=== PATIENT | male | born 2000 | race Caucasian/White ===

== ENCOUNTER 2020-10-01 10:19 | Emergency (ER) | payer BC ==
--- NOTE | 2020-10-01 11:14 | ER Document Report ---
ED Medical Screen (RME) - General Chief Complaint: Scrotal Pain, Acute Onset Stated Complaint: TESTICULAR PAIN Time Seen by Provider: 10/01/20 11:12 Primary Care Provider: FLORENTIN CONTRERAS MD [Primary Care Provider] - Follow up as needed Mode of Arrival: Ambulatory Information source: Patient Notes: 20-year-old male presented to ED for right testicle and groin pain. He states he had low back pain yesterday that wrapped around but today he does not have the back pain he just has right testicle and groin pain. There is no swelling redness or change in color to the right scrotum. Will get urine and scrotal ultrasound. Patient will be seen by another provider. I have greeted and performed a rapid initial assessment of this patient. A comprehensive ED assessment and evaluation of the patient, analysis of test results and completion of medical decision making process will be conducted by an additional ED providers. TRAVEL OUTSIDE OF THE [place] IN LAST 30 DAYS: No - Related Data Allergies/Adverse Reactions: No Known Allergies Allergy (Verified 10/01/20 11:11) Physical Exam - Vital signs Vitals: Temp Pulse Resp BP Pulse Ox 98.1 F 99 18 138/77 H 100 10/01/20 10:34 10/01/20 10:34 10/01/20 10:34 10/01/20 10:34 10/01/20 10:34 Course - Vital Signs Vital signs: Temp Pulse Resp BP Pulse Ox 98.1 F 99 18 138/77 H 100 10/01/20 10:34 10/01/20 10:34 10/01/20 10:34 10/01/20 10:34 10/01/20 10:34 Doctor's Discharge - Discharge Referrals: FLORENTIN CONTRERAS MD [Primary Care Provider] - Follow up as needed
[2020-10-01 12:17] LABS: APPEARANCE,URINE CLEAR; BILIRUBIN,URINE NEGATIVE (NEGATIVE); COLOR,URINE YELLOW; GLUCOSE, URINE NEGATIVE (NEGATIVE); KETONES,URINE 20 mg/dL (NEGATIVE); LEUKOCYTE ESTERASE,URINE NEGATIVE (NEGATIVE); NITRITE,URINE NEGATIVE (NEGATIVE); PROTEIN,URINE NEGATIVE (NEGATIVE); URINE SPECIFIC GRAVITY 1.011; UROBILINOGEN,URINE NEGATIVE mg/dL (<2.0)
--- NOTE | 2020-10-01 13:32 | RADIOLOGY REPORT (SQ) ---
EXAM DESCRIPTION: CT ABD/PELVIS NO ORAL OR IV IMAGES COMPLETED DATE/TIME: 10/01/2020 1:16 pm REASON FOR STUDY: R flank pain COMPARISON: None. TECHNIQUE: CT scan of the abdomen and pelvis performed without intravenous or oral contrast. Images reviewed with lung, soft tissue, and bone windows. Reconstructed coronal and sagittal MPR images revi ewed. All images stored on PACS. All CT scanners at this facility use dose modulation, iterative reconstruction, and/or weight based d osing when appropriate to reduce radiation dose to as low as reasonably achievable (ALARA). [facility]: Dose Right [facility]: CareDose [facility]: Dose Right [facility]: Teradose 4D [facility]: Smart [employer] RADIATION DOSE: CT Rad equipment meets quality standard of care and radiation dose reduction techniq ues were employed. CTDIvol: 5.4 mGy. DLP: 280 mGy-cm. LIMITATIONS: None. FINDINGS: LOWER CHEST: No significant findings. No nodules or infiltrates. NON-CONTRASTED LIVER, SPLEEN, ADRENALS: Evaluation limited by lack of IV contrast. No identified sign ificant masses. PANCREAS: No masses. No peripancreatic inflammatory changes. GALLBLADDER: No identified stones by CT criteria. No inflammatory changes to suggest cholecystitis. RIGHT KIDNEY AND URETER: No suspicious masses. Assessment limited by lack of IV contrast. No signif icant calcifications. No hydronephrosis or hydroureter. LEFT KIDNEY AND URETER: No suspicious masses. Assessment limited by lack of IV contrast. No signifi cant calcifications. No hydronephrosis or hydroureter. AORTA AND RETROPERITONEUM: No aneurysm. No retroperitoneal masses or adenopathy. BOWEL AND PERITONEAL CAVITY: No obvious masses or inflammatory changes. No free fluid. APPENDIX: Normal. PELVIS, BLADDER, AND ABDOMINAL WALL:No abnormal masses. No free fluid. Bladder normal. 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 Mild levoconvex scoliosis lumbar spine. OTHER: No other significant finding. IMPRESSION: 1. NO ACUTE PROCESS IN THE ABDOMEN OR PELVIS. COMMENT: Quality ID # [id number]: Final reports with documentation of one or more dose reduction techniques (e.g., Automated exposure control, adjustment of the mA and/or kV according to patient size, use of iterative reconstruction technique) TECHNICAL DOCUMENTATION: JOB ID: [id number] 2010 [facility]- All Rights Reserved Reading location - IP/workstation name: [email or web address] [email or web address]
--- NOTE | 2020-10-01 13:41 | ER Document Report ---
ED GI/ - General Chief Complaint: Scrotal Pain, Acute Onset Stated Complaint: TESTICULAR PAIN Time Seen by Provider: 10/01/20 11:12 Primary Care Provider: [facility] [Provider Group] - Follow up as needed FLORENTIN CONTRERAS MD [COMMUNITY BASED STAFF] - Follow up as needed Mode of Arrival: Ambulatory Information source: Patient Notes: Patient reports having right flank pain that radiated around to right side of abdomen and into the groin that started yesterday. Patient presently denies any flank pain, although reports testicular tenderness. Patient reports nausea. No fever. Patient denies any urinary symptoms. TRAVEL OUTSIDE OF THE [place] IN LAST 30 DAYS: No - HPI Patient complains to provider of: Flank pain, Testicular pain. No: Diarrhea, Dysuria, Vomiting Onset: Yesterday Timing/Duration: Persistent Quality of pain: Achy Pain Level: 2 Location: Right testicle Associated symptoms: Nausea. denies: Dysuria, Erection problem, Fever, Urinary hesitancy, Urinary frequency, Urinary retention, Urinary urgency, Vomiting Exacerbated by: Denies Relieved by: Denies Similar symptoms previously: No Recently seen / treated by doctor: No - Related Data Allergies/Adverse Reactions: No Known Allergies Allergy (Verified 10/01/20 11:11) Past Medical History - General Information source: Patient - Social History Smoking Status: Never Smoker Frequency of alcohol use: None Drug Abuse: None Occupation: EMT Lives with: Family Family History: Reviewed & Not Pertinent - Medical History Medical History: Negative Past Surgical History: Reports: Hx Adenoidectomy, Hx Tonsillectomy Review of Systems - Review of Systems Constitutional: No symptoms reported. denies: Fever EENT: No symptoms reported Cardiovascular: No symptoms reported Respiratory: No symptoms reported. denies: Cough Gastrointestinal: Abdominal pain, Nausea. denies: Diarrhea, Vomiting Genitourinary: Flank pain. denies: Dysuria Male Genitourinary: Testicular pain. denies: Penile discharge Musculoskeletal: No symptoms reported Skin: No symptoms reported Hematologic/Lymphatic: No symptoms reported Neurological/Psychological: No symptoms reported Physical Exam - Vital signs Vitals: Temp Pulse Resp BP Pulse Ox 98.1 F 99 18 138/77 H 100 10/01/20 10:34 10/01/20 10:34 10/01/20 10:34 10/01/20 10:34 10/01/20 10:34 - General General appearance: Appears well, Alert In distress: None - HEENT Head: Normocephalic, Atraumatic Eyes: Normal Conjunctiva: Normal Nasal: Normal Mouth/Lips: Normal Mucous membranes: Normal Neck: Normal, Supple - Respiratory Respiratory status: No respiratory distress Chest status: Nontender Breath sounds: Normal. No: Rales, Rhonchi, Stridor, Wheezing Chest palpation: Normal - Cardiovascular Rhythm: Regular Heart sounds: S1 appreciated, S2 appreciated Murmur: No - Abdominal Inspection: Normal Distension: No distension Bowel sounds: Normal Tenderness: Nontender Organomegaly: No organomegaly - Genitourinary Inspection: Normal Tenderness: Testicle tender - right, Epididymis tender - right Cremasteric reflex: Normal. No: Right reflex absent, Left reflex absent Scrotum: Normal Notes: RN Syeda as standby - Back Back: Normal, Nontender. No: CVA tenderness - Extremities General upper extremity: Normal inspection, Normal ROM General lower extremity: Normal inspection, Normal ROM - Neurological Neuro grossly intact: Yes Cognition: Normal [place] Coma Scale Eye Opening: Spontaneous Mohamud Coma Scale Verbal: Oriented [place] Coma Scale Motor: Obeys Commands Mohamud Coma Scale Total: 15 - Psychological Associated symptoms: Normal affect, Normal mood - Skin Skin Temperature: Warm Skin Moisture: Dry Skin Color: Normal Course - Re-evaluation Re-evalutation: 10/01/20 14:14 Patient with findings worrisome for epididymitis with an incidental epididymal cyst. Patient gonorrhea and Chlamydia test negative at this time, no other evidence of UTI. CT scan reviewed, no concern for any obstructive uropathy. Will treat epididymitis with Rocephin and doxycycline. Good return precautions discussed with patient. Patient verbalized understanding and is agreeable with discharge plan of care at this time. 10/01/20 18:59 - Vital Signs Vital signs: Temp Pulse Resp BP Pulse Ox 98.5 F 90 15 138/65 H 99 10/01/20 14:33 10/01/20 14:33 10/01/20 14:33 10/01/20 14:33 10/01/20 14:33 - Laboratory Laboratory results interpreted by me: 10/01/20 11:30 Urine Ketones 20 H 10/01/20 14:14 Labs- All tests 24 hr 10/01/20 10/01/20 11:30 11:30 Urine Color YELLOW Urine Appearance CLEAR Urine pH 6.0 Ur Specific [place] 1.011 Urine Protein NEGATIVE Urine Glucose (UA) NEGATIVE Urine Ketones 20 H Urine Blood NEGATIVE Urine Nitrite NEGATIVE Urine Bilirubin NEGATIVE Urine Urobilinogen NEGATIVE Ur Leukocyte Esterase NEGATIVE Urine WBC (Auto) 1 Urine RBC (Auto) 0 Urine Mucus (Auto) RARE Urine Ascorbic Acid NEGATIVE Chlamydia DNA (PCR) NOT DETECTED N.gonorrhoeae DNA (PCR) NOT DETECTED - Diagnostic Test Radiology reviewed: Reports reviewed Discharge - Discharge Clinical Impression: Epididymitis, Epididymal cyst, Scrotal pain Condition: Stable Disposition: HOME, SELF-CARE Instructions: Anti-Inflammatory Medication ([facility]), Doxycycline ([facility]), Epididymitis ([facility]), Rocephin ([facility]) Additional Instructions: Return immediately for any new or worsening symptoms Followup with your primary care provider, call tomorrow to make a followup appointment Follow-up with urology for any persistent problems Prescriptions: Doxycycline Hyclate 100 mg PO BID #20 tablet. Naproxen [Naprosyn 250 Nmg Tablet] 1 tab PO BID #14 tablet Hydrocodone/Acetaminophen [[place] 5-325 mg Tablet] 1 tab PO Q6 PRN #8 tablet PRN Reason: Forms: Return to Work Referrals: FLORENTIN CONTRERAS MD [COMMUNITY BASED STAFF] - Follow up as needed [facility] [Provider Group] - Follow up as needed
--- NOTE | 2020-10-01 13:44 | RADIOLOGY REPORT (SQ) ---
EXAM DESCRIPTION: U/S SCROTUM W/DOPPLER IMAGES COMPLETED DATE/TIME: 10/01/2020 1:32 pm REASON FOR STUDY: Right testicle/scrotal/groin pain COMPARISON: None. TECHNIQUE: Static and realtime kumar scale imaging of the scrotum and testes. Selected color Doppler and spectral images recorded to document blood flow. LIMITATIONS: None. FINDINGS: RIGHT: TESTICLE: The right testicle measures 4.4 x 3.4 x 2.2 cm, normal size. Normal echotexture. Normal b lood flow. No mass. EPIDIDYMIS: The head and the epididymis measures 1.0 x 0.80.7 cm, normal. Marked increased vascular ity is identified with in the epididymis with an edematous appearance. Considerations for these find ings include epididymitis. HYDROCELE OR VARICOCELE: No. HERNIA OR EXTRA-TESTICULAR MASS: No. OTHER: No other significant finding. LEFT: TESTICLE: The left testicle measures 4.2 x 2.7 x 1.8 cm, normal size. Normal echotexture. Normal bl ood flow. No mass. EPIDIDYMIS: The head of the epididymis measures 1.1 x 0.7 x 0.6 cm. A 3.8 x 4.1 x 4.8 cm cyst. HYDROCELE OR VARICOCELE: No. HERNIA OR EXTRA-TESTICULAR MASS: No. OTHER: No other significant finding. IMPRESSION: 1. Marked increased vascularity and edematous appearance to the epididymis on the right , suggest epididymitis. 2. Small cyst in the head of the epididymis on the left. 3. No evidence OF TESTICULAR MASS OR TORSION. TECHNICAL DOCUMENTATION: JOB ID: [id number]- All Rights Reserved Reading location - IP/workstation name: [email or web address]
[2020-10-01 13:47] LABS: CHLAM PCR NOT DETECTED (NOT DETECT)
[2020-10-01] MEDS ORDERED: DOXYCYCLINE HYCLATE 100 MG TABLET PO ONE (14:13)
[2020-10-01] MEDS ORDERED: CEFTRIAXONE INJ 250 MG VIAL IM ONE (14:13)
[2020-10-01] MEDS ORDERED: LIDOCAINE 1% INJ (10 MG/ML) 10 ML MDV INJ ONE (14:13)
[2020-10-01 14:34] VITALS: BP 138/65
== END 2020-10-01 14:35 | disposition home or self-care (01) ==
LOC: ER 10:19
DX: N45.1 Epididymitis (principal); N50.3 Cyst of epididymis; N50.82 Scrotal pain; R10.9 Unspecified abdominal pain; R10.31 Right lower quadrant pain; R11.0 Nausea
CPT/HCPCS: 99285; 96372; 81001; 87491; 87591; 76870; 93976; 74176; J0696